=== PATIENT | female | born 1990 | race African-American/Black ===

== ENCOUNTER 2017-08-08 09:45 | Emergency (ER) | payer OTHER ==
[~2017-08-08] VITALS: Ht 160 cm; Wt 52.6 kg
[~2017-08-08 09:45] MED LIST: ABILIFY1 MG/1 ML PO; ABILIFY20 MG PO; ALBUTEROL SUL5 MG/M1 IH; ALBUTEROL2.5 MG/0.5 INH; BACTRIM DS TAB1 EACH PO; CLARITIN10 MG PO; HALDOL DECAN50 MG/M1 IM; HYDRALAZINE 2525 MG PO; INVEGA SUS117 MG/0.7 IM; INVEGA SUS39 MG/0.25; NORCO 5-325 TA1 EACH PO; PATANOL5 ML OPHTHALMIC; PHENERGAN 25 MG25 M1 PO; SEROQUEL 25 MG25 M1 PO; TRINATE TABLET1 TAB PO; VENTOLIN HFA 1818 GM INH
[2017-08-08] MEDS ORDERED: VENTOLIN HFA 1818 GM INH (09:59)
[2017-08-08 11:56] LABS: HEMATOCRIT 44.6 % (37.0-47.0); HEMOGLOBIN 15.4 gm/dL (12.0-15.0); MCH 30.2 pg (26.0-34.0); MCHC 34.5 g/dL (28.0-37.0); MCV 87.7 fL (80.0-100.0); RBC 5.09 mil/uL (4.20-5.00); RDW 12.8 % (10.5-14.5); WBC 4.3 thou/uL (4.0-11.0)
[2017-08-08 11:59] LABS: CALCIUM 8.8 mg/dL (8.5-10.1); CREATININE 0.8 mg/dL (0.6-1.0); POTASSIUM 4.9 mmol/L (3.5-5.1)
[2017-08-08 12:49] VITALS: BP 126/79
== END 2017-08-08 12:50 | disposition home or self-care (01) ==
LOC: ER 09:45
PROVIDERS: Emergency Medicine
DX: J06.9 Acute upper respiratory infection, unspecified (principal); J45.909 Unspecified asthma, uncomplicated; F20.9 Schizophrenia, unspecified

== ENCOUNTER 2018-05-15 17:47 | Emergency (ER) | payer OTHER ==
[~2018-05-15] VITALS: Ht 162.6 cm; Wt 52.6 kg
[~2018-05-15 17:47] MED LIST changes: +NAPROSYN500 MG PO; +ONDANSETRON HCL4 M2 PO
[2018-05-15 18:01] LABS: URINE BILIRUBIN NEGATIVE (Negative); URINE BLOOD NEGATIVE (Negative); URINE CLARITY CLEAR; URINE COLOR YELLOW; URINE GLUCOSE-RANDOM* NEGATIVE (Negative); URINE KETONES NEGATIVE (Negative); URINE LEUKOCYTES-REFLEX NEGATIVE (Negative); URINE NITRITE-REFLEX NEGATIVE (Negative); URINE PROTEIN (DIPSTICK) NEGATIVE (Negative); URINE UROBILINOGEN 0.2 E.U./dl (0.2-1.0)
[2018-05-15 18:18] LABS: ABSOLUTE NEUTROPHILS 3.3 thou/uL (1.4-8.2); BASOPHILS 0.4 % (0.0-2.0); EOSINOPHILS 1.1 % (0.0-3.0); HEMATOCRIT 40.6 % (37.0-47.0); LYMPHOCYTES 31.1 % (24.0-44.0); MCH 30.4 pg (26.0-34.0); MCHC 34.5 g/dL (28.0-37.0); MCV 88.2 fL (80.0-100.0); MONOCYTES 9.4 % (1.0-8.0); PLATELET COUNT 300 thou/uL (150-400); RBC 4.61 mil/uL (4.20-5.00); RDW 12.6 % (10.5-14.5); WBC 5.6 thou/uL (4.0-11.0)
[2018-05-15 18:24] LABS: CALCIUM 8.7 mg/dL (8.5-10.1); CREATININE 0.7 mg/dL (0.6-1.0); POTASSIUM 3.9 mmol/L (3.5-5.1)
[2018-05-15] MEDS ORDERED: NAPROSYN500 MG PO (20:11)
[2018-05-15 20:25] VITALS: BP 107/68
== END 2018-05-15 20:29 | disposition home or self-care (01) ==
LOC: ER 17:47
PROVIDERS: Physician Assistant
DX: R10.2 Pelvic and perineal pain (principal); R10.32 Left lower quadrant pain; N89.8 Other specified noninflammatory disorders of vagina; J45.909 Unspecified asthma, uncomplicated; F20.9 Schizophrenia, unspecified

== ENCOUNTER 2018-05-22 19:31 | Emergency (ER) | payer OTHER ==
[~2018-05-22] VITALS: Ht 162.6 cm; Wt 52.6 kg
[2018-05-22] MEDS ORDERED: MEDROLDOSEPACK PO (20:21)
[2018-05-22 20:29] VITALS: BP 125/77
== END 2018-05-22 20:29 | disposition home or self-care (01) ==
LOC: ER 19:31
DX: L50.9 Urticaria, unspecified (principal); L25.9 Unspecified contact dermatitis, unspecified cause; J45.909 Unspecified asthma, uncomplicated; F20.9 Schizophrenia, unspecified

== ENCOUNTER 2020-08-15 19:30 | Emergency (ER) | payer OTHER ==
[~2020-08-15] VITALS: Ht 160 cm; Wt 51.3 kg
[~2020-08-15 19:30] MED LIST changes: +MEDROLDOSEPACK PO
[2020-08-15 22:40] VITALS: BP 111/83
== END 2020-08-15 22:35 | disposition home or self-care (01) ==
LOC: ER 19:30
DX: N76.4 Abscess of vulva (principal); J45.909 Unspecified asthma, uncomplicated; Z79.899 Other long term (current) drug therapy

== ENCOUNTER 2020-08-21 23:13 | Emergency (ER) | payer OTHER ==
[~2020-08-21] VITALS: Ht 160 cm; Wt 50.8 kg
[2020-08-21 23:48] LABS: ABSOLUTE NEUTROPHILS 3.5 thou/uL (1.4-8.2); BASOPHILS 0.4 % (0.0-2.0); EOSINOPHILS 0.5 % (0.0-3.0); HEMATOCRIT 41.6 % (37.0-47.0); HEMOGLOBIN 13.7 gm/dL (12.0-15.0); LYMPHOCYTES 22.8 % (24.0-44.0); MCH 29.4 pg (26.0-34.0); MCHC 32.9 g/dL (28.0-37.0); MCV 89.5 fL (80.0-100.0); MONOCYTES 7.7 % (1.0-8.0); PLATELET COUNT 261 thou/uL (150-400); POLYS 68.6 % (36.0-66.0); RBC 4.65 mil/uL (4.20-5.00); RDW 12.9 % (10.5-14.5); WBC 5.1 thou/uL (4.0-11.0)
[2020-08-21 23:59] LABS: ALBUMIN 3.7 g/dL (3.4-5.0); ANION GAP 8 mmol/L (7-16); BUN 10 mg/dL (7-18); CHLORIDE 104 mmol/L (98-107); CO2 26 mmol/L (21-32); CREATININE 0.9 mg/dL (0.6-1.0); DIRECT BILIRUBIN < 0.1 mg/dL (<0.1-0.2); GLUCOSE 114 mg/dL (74-106); LIPASE 123 U/L (73-393); POTASSIUM 3.1 mmol/L (3.5-5.1); SGOT 18 U/L (15-37); SGPT 24 U/L (14-59); SODIUM 138 mmol/L (136-145); TOTAL BILIRUBIN 0.4 mg/dL (0.2-1.0); TOTAL PROTEIN 6.8 g/dL (6.4-8.2)
[2020-08-22 00:05] LABS: CALCIUM 8.8 mg/dL (8.5-10.1)
[2020-08-22 00:24] LABS: URINE BILIRUBIN NEGATIVE (Negative); URINE BLOOD 2+ (Negative); URINE CLARITY CLEAR; URINE COLOR YELLOW; URINE GLUCOSE-RANDOM* NEGATIVE (Negative); URINE KETONES NEGATIVE (Negative); URINE LEUKOCYTES-REFLEX TRACE (Negative); URINE NITRITE-REFLEX NEGATIVE (Negative); URINE PROTEIN (DIPSTICK) NEGATIVE (Negative); URINE SPECIFIC GRAVITY 1.015 (1.005-1.035); URINE UROBILINOGEN 0.2 E.U./dl (0.2-1.0)
[2020-08-22 00:32] LABS: CASTS None Seen /LPF (None Seen); SQUAMOUS 4-10 Moderate /LPF (0-3); URINE RBC 0-2 Rare /HPF (0-2)
[2020-08-22 00:33] LABS: BACTERIA-REFLEX 1-9 Few /HPF (None Seen); CRYSTALS None Seen /LPF (None Seen); URINE WBC-REFLEX 0-5 Rare /HPF (0-5)
[2020-08-22 00:34] LABS: MUCUS 0-3 Light strn/LPF (None Seen)
[2020-08-22] MEDS ORDERED: ZOFRAN ODT4 MG PO (02:18)
[2020-08-22 02:23] VITALS: BP 116/76
== END 2020-08-22 02:33 | disposition home or self-care (01) ==
LOC: ER 23:13
PROVIDERS: Emergency Medicine
DX: E86.0 Dehydration (principal); Z20.828 Contact with and (suspected) exposure to other viral communicable diseases; R11.10 Vomiting, unspecified; J45.909 Unspecified asthma, uncomplicated

== ENCOUNTER 2020-12-23 12:55 | Emergency (ER) | payer OTHER ==
[~2020-12-23] VITALS: Ht 162.6 cm; Wt 50.8 kg
[~2020-12-23 12:55] MED LIST changes: +ZOFRAN ODT4 MG PO
[2020-12-23 13:19] LABS: URINE BILIRUBIN NEGATIVE (Negative); URINE BLOOD 3+ (Negative); URINE COLOR YELLOW; URINE GLUCOSE-RANDOM* NEGATIVE (Negative); URINE KETONES NEGATIVE (Negative); URINE PROTEIN (DIPSTICK) TRACE (Negative); URINE UROBILINOGEN 0.2 E.U./dl (0.2-1.0)
[2020-12-23 13:20] LABS: URINE CLARITY HAZY; URINE LEUKOCYTES-REFLEX 2+ (Negative); URINE NITRITE-REFLEX POSITIVE (Negative)
[2020-12-23 13:28] LABS: BACTERIA-REFLEX >30 Many /HPF (None Seen); CASTS None Seen /LPF (None Seen); CRYSTALS None Seen /LPF (None Seen); SQUAMOUS 0-3 Few /LPF (0-3); URINE WBC-REFLEX >25 Many /HPF (0-5)
[2020-12-23] MEDS ORDERED: PYRIDIUM200 MG PO (13:35)
[2020-12-23] MEDS ORDERED: CEPHALEXIN500 MG PO (13:35)
[2020-12-23 15:18] VITALS: BP 120/79
== END 2020-12-23 15:28 | disposition home or self-care (01) ==
LOC: ER 12:55
PROVIDERS: Nurse Practitioner Family
DX: N39.0 Urinary tract infection, site not specified (principal); J45.909 Unspecified asthma, uncomplicated; F20.9 Schizophrenia, unspecified; Z79.899 Other long term (current) drug therapy

== ENCOUNTER 2021-06-10 16:38 | Emergency (ER) | payer OTHER ==
[~2021-06-10] VITALS: Ht 160 cm; Wt 50.8 kg
[~2021-06-10 16:38] MED LIST changes: +CEPHALEXIN500 MG PO; +PYRIDIUM200 MG PO
[2021-06-10] MEDS ORDERED: ALBUTEROL2.5 MG/31 INH (18:30)
[2021-06-10] MEDS ORDERED: PROAIR HFA8.5 GM INH (18:30)
[2021-06-10] MEDS ORDERED: NEBULIZER MISCELL (18:30)
[2021-06-10 19:39] VITALS: BP 125/83
== END 2021-06-10 19:41 | disposition home or self-care (01) ==
LOC: ER 16:38
DX: U07.1 COVID-19 (principal); F20.9 Schizophrenia, unspecified; J45.909 Unspecified asthma, uncomplicated; Z91.09 Other allergy status, other than to drugs and biological substances; Z79.51 Long term (current) use of inhaled steroids; Z79.899 Other long term (current) drug therapy